=== PATIENT | female | born 1945 | race Caucasian/White ===

== ENCOUNTER 2018-12-07 17:58 | Inpatient (IN) | payer MEDICARE ==
[~2018-12-07] VITALS: Ht 170.2 cm; Wt 66.5 kg
[2018-12-07] VITALS (12 sets, daily range): BP systolic 126–144; BP diastolic 68–94; BMI 23.7
--- NOTE | ~2018-12-07 | HEMODYNAMI ---
PATIENT:MARLEE VOSS MEDICAL RECORD: [id number] : 49 LOCATION:[facility] ADMISSION DATE: 12/07/18 Generatedon:12/07/201818:59 Patient name: MARLEE VOSS Patient #: [id number] SSN: : Date of study: 12/07/2018 Page: Of Hemodynamic Procedure Report Patient Data Patient Demographics Procedure consent was obtained First Name: MARLEE Gender: Female Last Name: SHANIKA : 1945 [facility] Initial: J Age: 73 year(s) Patient #: [id number] Race: Unknown Additional ID: [id number] Contact details [address]: [address] [place] [address] State: [place] City: [place] Zip code: [address] Past Medical History Allergies Allergen Reaction Date Comments Reported Other allergy 12/07/2018 CINDAMYCIN, LISINOPRIL, BACTRIM Admission Admission Data Admission Date: 12/07/2018 Admission Time: 17:58 Arrival Date: 12/07/2018 Arrival Time: 0:00 Admit Source: Emergency department Height (in.): 67 BSA: 1.74 (m2) Height (cm.): 170.18 BMI: 22.1 (kg/m2) Weight (lbs.): 141.1 Weight (kg.): 64 Procedure Procedure Types Cath Procedure Diagnostic Procedure [facility] w/Coronaries Sedation Charges Moderate Sedation up to 30 minutes PCI Procedure AMI/SVG/ELECTROTYPER HELPER PTCA or Stent AMI-BMS/CHATO Initial Procedure Description Procedure Date Procedure Date: 12/07/2018 Procedure Start Time: 18:26 Procedure End Time: 18:54 Procedure Staff Name Function Westley Morillo MD Performing Physician Hortencia Francis RT Monitor Rayne Encarnacion RT Scrub Stephanie Ramos RN Nurse Procedure Data Cath Procedure Fluoroscopy Diagnostic fluoroscopy Total fluoroscopy Time: 7.9 time: 7.9 min min Diagnostic fluoroscopy Total fluoroscopy dose: 690 dose: 690 mGy mGy Contrast Material Contrast Material Type Amount (ml) Isovue 300 92 Entry Location Entry Primary Successful Side Size Upsize Upsize Entry Closure Succes sful Closure Location (Fr) 1 (Fr) 2 (Fr) Remarks Device Remarks Femoral Right 6 Fr Exoseal artery Short Estimated blood loss: 5 ml Diagnostic catheters Device Type Used For End Catheter Placement MULTIPACK JL 4.0 5Fr Left Coronary catheter Angiography MULTIPACK 3DRC 5Fr Right Coronary catheter Angiography MULTIPACK Pigtail 5 Fr LV Angiography catheter Procedure Complications No complications Procedure Medications Medication Administration Route Dosage 0.9% NaCl I.V. 100 ml/hr Oxygen etCO2 Nasal cannula 2 l/min Lidocaine 2% added to field 20 Heparin Flush Bag added to field 2 bags (1000units/500ml NS) Versed I.V. 2 mg Fentanyl I.V. 50 mcg Benadryl I.V. 50 mg Fentanyl I.V. 50 mcg Versed I.V. 2 mg Heparin Bolus I.V. 4000 units Plavix P.O. 300 mg Hemodynamics Rest BSA: 1.74 (m2) O2 Consumption: Estimated: 160.23 (ml/min) O2 Consumption indexed : Estimated:92.09 (ml/min/m) Heart Rate: 70 (bpm) Pressure Samples Time Site Value (mmHg) Purpose Heart Use Rate(bpm) 18:36 LV 189/74,33 Snapshot 82 Gradients Valve Time Site Site Mean SEP/DFP Peak To Heart Use 1 2 (mmHg) (sec/min) Peak Rate (mmHg) (bpm) Aortic 18:36 LV AO 83 Snapshots Pre Cath Intra NCS Post Cath Vital Signs Time Heart Resp SPO2 etCO2 NIBP (mmHg) Rhythm Pain Status Sedation Rate (ipm) (%) (mmHg) Level (bpm) 18:22:59 72 14 100 16 135/72(111) NSR 4 (11) , 10(A) Distressing 18:27:11 77 16 98 13 139/82(116) NSR 4 (11) , 10(A) Distressing 18:31:23 78 16 98 16.4 132/76(113) NSR 4 (11) , 10(A) Distressing 18:35:36 82 14 98 14.9 131/71(103) NSR 1 (11) , 10(A) Very mild 18:39:44 87 16 97 17.9 123/81(106) NSR 1 (11) , 10(A) Very mild 18:44:43 99 10 97 22.4 Measuring NSR 0 (11) , No 10(A) pain 18:47:27 104 11 98 38.8 165/93(130) NSR 0 (11) , No 10(A) pain 18:51:41 105 18 93 17.9 150/94(119) NSR 0 (11) , No 10(A) pain Medications Time Medication Route Dose Verified Delivered Reason Notes Effectiveness by by 18:23:04 Benadryl I.V. 50 mg Westley Stephanie Per physician St Jose Ramos MD, RN 18:28:37 0.9% NaCl I.V. 100 Westley Stephanie used for ml/hr IliaJose Ramos procedure MD MONTALVO 18:28:44 Oxygen etCO2 2 Westley Stephanie used for Nasal l/min IliaJose Ramos procedure cannula MD MONTALVO 18:28:49 Lidocaine 2% added 20ml Westley Nelsonory for local to vial [facility] anesthetic field MD BUSCH 18:28:53 Heparin Flush added 2 Westley Westley used for Bag to bags [facility] procedure (1000units/500ml field MD BUSCH NS) 18:28:58 Versed I.V. 2 mg Westley Stephanie for sedation St Jose Ramos MD, RN 18:29:04 Fentanyl I.V. 50 Westley Stephanie for sedation mcg St Jose Ramos MD, RN 18:33:07 Fentanyl I.V. 50 Westley Stephanie for sedation mcg St Jose Ramos MD, RN 18:37:34 Heparin Bolus I.V. 4000 Westley Stephanie for verif ied units [facility] anticoagulation with Dr. MD MONTALVO [place] 18:39:29 Versed I.V. 2 mg Westley Stephanie for sedation St Jose Ramos MD, RN 18:55:33 Plavix P.O. 300 Westley Palmeryla for mg St Jose Ramos antiplatelet MD MONTALVO therapy Procedure Log Time Note 18:00:03 Stephanie Ramos RN sent for patient. Start room use. 18:08:11 Procedure Status Emergent Heart Cath (AMI). 18:08:12 Time tracking: Call back (After hours or weekends) 18:08:20 Plan of Care:Hemodynamics will remain stable., Cardiac rhythm will remain stable., Comfort level will be maintained., Respiratory function will remain adequate., Patient/ family verbilizes understanding of procedure., Procedure tolerated without complication., Recovers from procedure without complications.. 18:08:21 Signed procedure consent form obtained from patient. 18:09:22 Patient allergic to Other allergyCINDAMYCIN, LISINOPRIL, BACTRIM 18:10:44 Use device set CATH PACK 18:10:45 ACIST Syringe (93078) opened to sterile field. 18:10:45 ACIST Hand Control (07117) opened to sterile field. 18:10:46 ACIST Manifold (93930) opened to sterile field. 18:10:46 Medline Cath Pack ([id number]) opened to sterile field. 18:10:46 Bag Decanter (2002S) opened to sterile field. 18:10:47 EMERALD Guide Wire (502-606) opened to sterile field. 18:11:15 SHEATH 6FR Pimento (UZS672) opened to sterile field. 18:11:15 INFLATOR Merit BasixCompak (BE3556) opened to sterile field. 18:11:16 WHISPER 300cm guide wire ([id number]) opened to sterile field. 18:12:59 Patient Weight : 141.1 lbs 18:13:07 Patient Height : 67 inches 18:13:12 Admit Source: Emergency department 18:13:16 Arrival Date: 12/07/2018 12:00:00 AM 18:13:25 H&P Date Dictated: 12/07/2018 ER History on chart.. 18:16:20 Patient received from ED to CCL 1 Alert and oriented. Tansferred to table in Supine position. 18:16:21 Warm blankets applied, and marco hugger turned on for patient comfort. 18:16:22 Correct patient and procedure confirmed by team. 18:16:22 ECG and BP/O2 sat monitors applied to patient. 18:21:56 Vital chart was started 18:21:57 Baseline sample Acquired. 18:22:00 Rhythm: sinus rhythm 18:22:02 Full Disclosure recording started 18:22:03 Pre-procedure instructions explained to patient. 18:22:05 Family unavailable. 18:22:08 Patient NPO since Midnight. 18:22:10 Is the patient allergic to Iodine/contrast media? No. 18:22:12 Was the patient premedicated? No 18:22:19 Is patient on blood thinner?Yes 18:22:23 ACC The patient was administered the following blood thiners within the last 24 hours: ACCHeparin 18:22:36 Patient diabetic? Yes. 18:22:37 If diabetic: On Metformin? Yes 18:22:40 If on Metformin: Last Dose? 12/07/2018 18:22:47 Previous problem with sedation/anesthesia? No ? 18:22:49 Snore? Yes 18:22:51 Sleep apnea? No 18:22:52 Deviated septum? No 18:22:53 Opens mouth fully? Yes 18:22:54 Sticks out tongue? Yes 18:22:57 Airway obstruction? No ? 18:23:04 Benadryl 50 mg I.V. was administered by Stephanie Ramos RN; Per physician; Verbal order read back and verified. 18:23:04 Dentures? Yes PARTIALS IN TIGHT 18:23:09 Pre procedure: right dorsailis pedis pulse 1+ Palpable, but thready & weak; easily obliterated 18:23:12 Pre procedure: left dorsailis pedis pulse 1+ Palpable, but thready & weak; easily obliterated 18:23:14 Patient pain scale 3/10 ?. 18:23:27 IV patent on arrival in left forearm with 0.9% NaCl at [facility]. 18:23:30 Lab results completed and on chart. 18:23:33 Right groin area was prepped with chlora-prep and draped in sterile fashion 18:23:34 Alarms reviewed by R. N. 18:23:34 Sharps counted by scrub and verified by R.N. 18:23:35 Physician arrived 18:23:36 --------ALL STOP TIME OUT------ 18:23:36 Final Timeout: patient, procedure, and site verified with staff and physician. All members of the team are in agreement. 18:23:39 Right groin site verified by team. 18:23:42 Fire Safety Assessment: A--An alcohol-based skin anteseptic being used preoperatively., C--Open oxygen or nitrous oxide is being used., D--An ESU, laser, or fiber-optic light is being used. 18:23:46 Physical assessment completed. ASA score P 2 - A patient with mild systemic disease as per Westley Morillo MD. 18:23:56 Sedation plan: IV Moderate Sedation Medication:Versed, Fentanyl 18:23:59 Use device set Femoral Dx 18:24:00 ACIST Syringe (61945) opened to sterile field. 18:24:01 Bag Decanter (2001S) opened to sterile field. 18:24:01 Medline Cath Pack ([id number]) opened to sterile field. 18:24:02 ACIST Hand Control (69648) opened to sterile field. 18:24:03 ACIST Manifold (88251) opened to sterile field. 18:24:03 DIAGNOSTIC Multipack 5Fr catheter set (ZW3261) opened to sterile field. 18:24:04 Tegaderm 4 x 4 (1626W) opened to sterile field. 18:24:05 SHEATH 5FR Pimento (AQN737) opened to sterile field. 18:24:05 EMERALD Guide Wire (622-262) opened to sterile field. 18:26:47 Procedure started. 18:26:50 Local anesthetic to right femoral artery with Lidocaine 2% by Westley Morillo MD.INITIAL ACCESS ONLY 18:27:10 A 6 Fr Short sheath was inserted into the Right Femoral artery 18:28:16 A MULTIPACK JL 4.0 5Fr catheter was advanced over the wire and used for Left Coronary Angiography. 18:28:37 0.9% NaCl 100 ml/hr I.V. was administered by Stephanie Ramos RN; used for procedure; Verbal order read back and verified. 18:28:44 Oxygen 2 l/min etCO2 Nasal cannula was administered by Stephanie Ramos RN; used for procedure; Verbal order read back and verified. 18:28:49 Lidocaine 2% 20ml vial added to field was administered by Westley Morillo MD; for local anesthetic; Verbal order read back and verified. 18:28:53 Heparin Flush Bag (1000units/500ml NS) 2 bags added to field was administered by Westley Morillo MD; used for procedure; Verbal order read back and verified. 18:28:58 Versed 2 mg I.V. was administered by Stephanie Ramos RN; for sedation; Verbal order read back and verified. 18:29:04 Fentanyl 50 mcg I.V. was administered by Stephanie Ramos RN; for sedation; Verbal order read back and verified. 18:30:13 LCA angiography performed. 18:30:15 Injector settings: Ml/sec: 3, Volume: 6, 18:30:46 Catheter removed. 18:31:02 A MULTIPACK 3DRC 5Fr catheter was advanced over the wire and used for Right Coronary Angiography. 18:32:02 GLIDE WIRE ANGLE 260cm (TL2179) opened to sterile field. 18:33:07 Fentanyl 50 mcg I.V. was administered by Stephanie Ramos RN; for sedation; Verbal order read back and verified. 18:33:40 RCA angiography performed. 18:33:44 Injector settings: Ml/sec: 3, Volume: 6, 18:33:53 Catheter removed. 18:33:59 A MULTIPACK Pigtail 5 Fr catheter was advanced over the wire and used for LV Angiography. 18:34:29 INFLATOR Merit BasixCompak (AF0918) opened to sterile field. 18:34:35 WHISPER 300cm guide wire ([id number]) opened to sterile field. 18:35:11 GUIDE 6FR EBU 3.5 catheter (SA3PMB37) opened to sterile field. 18:36:26 LV hemodynamics recorded. 18:36:28 LV gram done using WHITAKER 18:36:30 Injector settings: Ml/sec: 5, Volume: 15, 18:36:43 EF : 40 % 18:36:45 Catheter removed. 18:36:52 Proceeding to intervention. 18:36:55 ACCDominant side:Right 18:37:17 Pre PCI Site: Hoh mCirc has 98% stenosis. 18:37:20 ACC Pre-intervention YOSELYN Flow is 3. 18:37:26 6 Fr EBU 3.5 guide catheter was inserted over the wire 18:37:31 WHISPER wire advanced. 18:37:34 Heparin Bolus 4000 units I.V. was administered by Stephanie Ramos RN; for anticoagulation; verified with Dr. Dupree Verbal order read back and verified. 18:39:29 Versed 2 mg I.V. was administered by Stephanie Ramos RN; for sedation; Verbal order read back and verified. 18:40:25 Inflate balloon Inflation number: 1 A EMERGE OTW 3.0 x 15 balloon ([id number]) was prepped and advanced across the Mid CX 98, then inflated to 10 CLAUDIA for 0:30 (min:sec) 0. 18:41:02 Inflation number: 2 The EMERGE OTW 3.0 x 15 balloon ([id number]) was reinflated across the Mid CX 0, to 14 CLAUDIA for 0:30 (min:sec) . 18:41:35 Balloon removed over the wire. 18:46:51 Place stent Inflation Number: 3 A MARIANO OTW 3.5 x 18 stent ([id number]) was prepped and advanced across the Mid CX 98. The stent was deployed at 14 CLAUDIA for 0:30 (min:sec) 0. 18:47:28 Stent catheter was removed intact over wire. 18:47:29 Wire removed. 18:47:29 Guide catheter removed. 18:47:38 EXOSEAL 6Fr (EX600) opened to sterile field. 18:47:52 Sheath removed intact; hemostasis achieved with Exoseal to the Right Femoral artery. 18:47:55 Procedure ended.(Physican Out) 18:48:06 Fluoroscopy time 07.90 minutes. 18:48:11 Fluoroscopy dose: 690 mGy 18:48:11 Flurop Dose total: 690 18:48:17 Dose Area Product 00013 mGy/cm. 18:48:23 Contrast amount:Isovue 300 92ml. 18:48:25 Sharps counted by scrub and verified by R.N. 18:51:38 Femstop placed over the right femoral artery at 145 mmHg. Hemostasis achieved. 18:51:40 Post Procedure Pulses reassessed and unchanged 18:51:48 Post procedure rhythm: unchanged. 18:54:08 Estimated blood loss: 5 ml 18:54:09 Post procedure instruction explained to patient.Patient verbalizes understanding. 18:54:10 Patient needs reinforcement of post procedure teaching. 18:54:32 Procedure type changed to Cath procedure, Diagnostic procedure, LHC, LHC w/Coronaries, Sedation Charges, Moderate Sedation up to 30 minutes, PCI procedure, AMI/SVG/ELECTROTYPER HELPER PTCA or Stent, AMI-BMS/CHATO Initial 18:54:33 Procedure and supply charges have been captured, reviewed, submitted and are correct. 18:54:37 Procedure Complication : No complications 18:54:40 Vital chart was stopped 18:54:41 See physician's report for complete and final results. 18:54:51 Report given to ICU. 18:54:53 Patient transfered to ICU with Stretcher. 18:54:56 Procedure ended. 18:54:56 Full Disclosure recording stopped 18:55:05 ACC-PCI Only Patient was given prescriptions, or instructed by Westley Morillo MD to start/continue the following medications upon discharge: Plavix 18:55:06 End room use (Document Last) 18:55:33 Plavix 300 mg P.O. was administered by Stephanie Ramos RN; for antiplatelet therapy; Verbal order read back and verified. Intervention Summary Intervention Notes Time ActionType Lesion and Equipment Action# Pressure Duration Attributes Used 18:40:25 Inflate Mid CX EMERGE OTW 1 10 00:30 balloon 3.0 x 15 balloon ([id number]) 18:41:02 Reinflate Mid CX EMERGE OTW 2 14 00:30 balloon 3.0 x 15 balloon ([id number]) 18:46:51 Place stent Mid CX MARIANO OTW 3.5 3 14 00:30 x 18 stent ([id number]) Device Usage Item Name Manufacture Quantity Catalog Number Hospital Part Current M inimal Lot# / Charge Number Stock Stock Serial# Code ACIST Syringe Acist 2 33876 203372 851517 587237 2 0 (53542) Medical Systems Inc ACIST Hand Acist 2 74844 472456 511073 235888 5 Control Medical (59295) Systems Inc ACIST Acist 2 61035 791078 134900 472208 5 Manifold Medical (89436) Systems Inc Medline Cath Medline 2 [id number] 451965 15114 433665 5 Pack ([id number]) Bag Decanter Microtek 2 2001S 306031 03511 677536 5 (2001S) Medical Inc. EMERALD Guide Cardinal 2 502-455 006794 386802 660543 5 Wire Health (502455) SHEATH 6FR Terumo 1 OPW198 841965 248201 491139 4 0 Pimento (MCQ143) INFLATOR Merit 2 BS4775 316240 335946 035284 1 5 Merit Medical BasixCompak (MZ4174) WHISPER 300cm Delgadillo 2 [id number] 852087 285070 482979 5 guide wire Vascular ([id number]) DIAGNOSTIC Cardinal 1 DQ1490 724442 07685 541205 3 0 Multipack 5Fr Health catheter set (AJ7532) Tegaderm 4 x 3M 1 1626W 960292 571058 562233 5 4 (1626W) SHEATH 5FR Terumo 1 VQG229 584408 240572 755629 5 Pimento (EPH772) MULTIPACK JL Cardinal 1 042720 5 4.0 5Fr Health catheter MULTIPACK Cardinal 1 800322 5 3DRC 5Fr Health catheter GLIDE WIRE Terumo 1 UR4780 364580 573676 968466 5 ANGLE 260cm (WH3286) MULTIPACK Cardinal 1 476280 5 Pigtail 5 Fr Health catheter GUIDE 6FR EBU Medtronic 1 [id number] 414791 30661 816395 3 3.5 catheter (KT7MCU51) EMERGE OTW Kulm 1 [id number] 798759 227974 920403 5 [id number] 3.0 x 15 Scientific balloon ([id number]) MARIANO OTW 3.5 Medtronic 1 [id number] 605650 4537708 716450 5 [id number] x 18 stent ([id number]) EXOSEAL 6Fr Cardinal 1 EX600 585922 921111 840550 1 0 (EX600) Health Signature Audit [place] Stage Time Signature Unsigned Intra-Procedure 12/07/2018 Hortencia Francis 6:58:34 PM RT(R) Intra-Procedure 12/07/2018 Stephanie Ramos 6:58:59 PM RN Intra-Procedure 12/07/2018 Westley Restrepo 6:59:25 PM [place] [address] [place] [address]
[2018-12-07] MEDS ORDERED: AMLODIPINE (18:05)
[2018-12-07] MEDS ORDERED: METFORMIN (18:05)
[2018-12-07] MEDS ORDERED: GABAPENTIN (18:05)
[2018-12-07] MEDS ORDERED: VITAMINS (18:05)
[2018-12-07] MEDS ORDERED: [UNRECOGNIZED DRUG - OTHER] (18:05)
[2018-12-07] MEDS ORDERED: [UNRECOGNIZED DRUG - REMARK] (18:06)
[2018-12-07] MEDS ORDERED: MUSCLE RELAXER (18:06)
[2018-12-07] MEDS ORDERED: ACID REFLUX PILL (18:06)
[2018-12-07] MEDS ORDERED: ALLERGY PILL (18:06)
[2018-12-07] MEDS ORDERED: ANXIETY/DEPRESSION (18:06)
[2018-12-07] MEDS ORDERED: ANTIBIOTIC (18:06)
[2018-12-07] MEDS ORDERED: [UNRECOGNIZED DRUG - REMARK] (18:07)
--- NOTE | 2018-12-07 18:14 | NUR ---
PT LEFT ED AT THIS TIME WITH STAFF VETERINARIAN TEAM
--- NOTE | 2018-12-07 18:20 | NUR ---
DEPART TO TRACK SERVICE WORKER AT 1820
--- NOTE | 2018-12-07 19:15 | NUR ---
PT RECIEVED FROM CAP CUTTER, PT AWAKES BUT DROWSY, RESP EVEN NON LABORED, NO DISTRES NOTED AT THIS TIME, VSS
[2018-12-07 19:47] LABS: BASOPHILS 0.2 % (0-2); EOSINOPHILS 0.7 % (0-7); HEMATOCRIT 35.9 % (36.0-48.0); HEMOGLOBIN 12.4 g/dL (12-16); IMMATURE GRANULOCYTES 0.2 % (0-5); LYMPHOCYTES 21.6 % (15-50); MCH 30.5 pg (26.0-34.0); MCHC 34.5 g/dL (31.0-37.0); MCV 88.2 fL (80.0-100.0); MEAN PLATELET VOLUME 9.3 fL (7.4-10.4); MONOCYTES 4.6 % (2-11); NEUTROPHILS 72.7 % (40-80); PLATELET COUNT 196 10x3/uL (130-400); RBC 4.07 10x6/uL (4.00-5.40); RDW 13.3 % (11.5-14.5); WBC 15.3 10x3/uL (4.8-10.8)
[2018-12-07 20:03] LABS: CALC OSMOLALITY 270 mosm/kg (275-300); CALCIUM 8.3 mg/dL (8.5-10.1); CHLORIDE - SERUM 98 mmol/L (98-107); CREATININE - SERUM 0.6 mg/dL (0.6-1.3); GLUCOSE 150 mg/dL (74-106); POTASSIUM - SERUM 4.1 mmol/L (3.5-5.1); SODIUM 134 mmol/L (136-145); UREA NITROGEN 13 mg/dL (7-18); eGFR NON AFRICAN AMERICAN > 90 mL/min (90-120)
[2018-12-07] MEDS ORDERED: PROTONIX40 MG PO (20:04)
[2018-12-07] MEDS ORDERED: GLUCOPHAGE500 MG PO (20:05)
[2018-12-07] MEDS ORDERED: ZOLOFT25 MG PO (20:08)
[2018-12-07] MEDS ORDERED: NORVASC5 MG PO (20:08)
[2018-12-07] MEDS ORDERED: ROPINIROLE HCL0.5 MG PO (20:09)
[2018-12-07] MEDS ORDERED: NEURONTIN600 MG PO ×3 (20:11→20:12)
[2018-12-07] MEDS ORDERED: LIPITOR10 MG PO (20:13)
[2018-12-07] MEDS ORDERED: MAGNESIUM OXID250 MG PO (20:13)
[2018-12-07] MEDS ORDERED: POTASSIUM99 M1 PO (20:16)
[2018-12-07] MEDS ORDERED: BUTALB-APAP-CA1 EACH PO (20:18)
[2018-12-07] MEDS ORDERED: CEREFOLIN TAB1 TAB PO (20:19)
[2018-12-07] MEDS ORDERED: CYCLOBENZAPRINE10 MG PO (20:28)
[2018-12-07] MEDS ORDERED: KEFLEX500 MG PO (20:29)
--- NOTE | 2018-12-07 20:30 | NUR ---
PT C/O RICHARDS, NEW ORDERS FROM DR. NANCE, PT GIVEN PAIN MED
--- NOTE | 2018-12-07 21:00 | NUR ---
PT ADVISED THAT PAIN WAS ONLY A LITTLE BETTER AT THIS TIME. VSS NO CHANGES IN COND. NOTED
--- NOTE | 2018-12-07 22:30 | NUR ---
FEMSTOP REMOVED AT THIS TIME, SITE CLEANED, AND TEGRADERM APPLIED, NO BLEEDING NOTED FROM SITE. PT MAHI WELL. SMALL AREA OF SWELLING NOTED TO RIGHT ANTERIOR THIGH, NO PULSATION NOTED, NO PAIN ON PALPATION
--- NOTE | 2018-12-07 23:00 | NUR ---
PT REASSESSMENT COMPLETED AT THIS TIME, NO CHANGES NOTED
[2018-12-08] VITALS (25 sets, daily range): BP systolic 97–143; BP diastolic 52–95
--- NOTE | 2018-12-08 01:00 | NUR ---
PT RESTING WITH EYES CLOSED, RESP EVEN NON LABORED, NO DISTRESS NOTED. VSS
--- NOTE | 2018-12-08 03:00 | NUR ---
PT REASSESSMENT COMPLETED AT THIS TIME, NO CHANGES NOTED
--- NOTE | 2018-12-08 05:00 | NUR ---
PT RESTING WITH EYES, NO CHANGES NOTED, VSS
--- NOTE | 2018-12-08 07:51 | NUR ---
CHG BATH PROVIDED AT THIS TIME. PT PERFORMED INDEPENDENTLY. TOTAL LINEN CHANGE ALSO PROVIDED. VSS. WILL CONTINUE PLAN OF CARE.
--- NOTE | 2018-12-08 08:20 | NUR ---
DR MESSER HERE TO SEE PT. NO NEW ORDERS RECEIVED. NOTIFIED OF RT GROIN TENDERNESS, STATED THAT WILL TAKE TIME. NO ACUTE DISTRESS NOTED. WILL CONTINUE PLAN OF CARE.
--- NOTE | 2018-12-08 09:51 | NUR ---
PER DR MESSER, OKAY TO RESTART PTS HOME METFORMIN, FLEXERIL, AND ROPINIROLE. PT ALSO ASKED ABOUT NEURONTIN STATING SHE HAS QHS AND PRN DOSES SHE TAKES AT HOME, DR MESSER STATED TO RESTART ONLY THE QHS DOSE. WILL PLACE ORDRES. WILL CONTINUE PLAN OF CARE.
--- NOTE | 2018-12-08 10:25 | NUR ---
PT COMPLAINT OF CHEST PAIN AT THIS TIME STATING IT MORE TO THE LEFT SIDE AND IS SLIGHT. DR MESSER NOTIFIED OF THIS AND EKG WAS ORDERED. ALSO GAVE ORDERS FOR MORPHINE 2-5 MG IV Q4H PRN PAIN. ONE TIME DOSE OF TORADOL 30MG IV. ALSO RECIEVED ORDERS FOR CBC, CMP, 1GRAM ROCEPHIN IV. VSS. WILL CONTINUE PLAN OF CARE.
[2018-12-08 10:33] LABS: BASOPHILS 0.1 % (0-2); EOSINOPHILS 1.2 % (0-7); HEMATOCRIT 36.2 % (36.0-48.0); IMMATURE GRANULOCYTES 0.3 % (0-5); LYMPHOCYTES 18.9 % (15-50); MCH 30.2 pg (26.0-34.0); MCHC 33.1 g/dL (31.0-37.0); MEAN PLATELET VOLUME 9.5 fL (7.4-10.4); MONOCYTES 6.3 % (2-11); NEUTROPHILS 73.2 % (40-80); PLATELET COUNT 190 10x3/uL (130-400); RBC 3.97 10x6/uL (4.00-5.40); RDW 13.6 % (11.5-14.5); WBC 15.1 10x3/uL (4.8-10.8)
[2018-12-08 10:34] LABS: MCV 91.2 fL (80.0-100.0)
[2018-12-08 10:49] LABS: ALBUMIN 3.3 g/dL (3.4-5.0); ALKALINE PHOSPHATASE 106 U/L (46-116); ALT (SGPT) 64 U/L (10-68); BILIRUBIN - TOTAL 0.41 mg/dL (0.2-1.3); CALC OSMOLALITY 275 mosm/kg (275-300); CALCIUM 8.3 mg/dL (8.5-10.1); CARBON DIOXIDE 28.7 mmol/L (21.0-32.0); CHLORIDE - SERUM 100 mmol/L (98-107); GLUCOSE 194 mg/dL (74-106); POTASSIUM - SERUM 4.2 mmol/L (3.5-5.1); PROTEIN - SERUM 7.2 g/dL (6.4-8.2); SODIUM 135 mmol/L (136-145); UREA NITROGEN 16 mg/dL (7-18); eGFR NON AFRICAN AMERICAN 75 mL/min (90-120)
[2018-12-08 10:51] LABS: CREATININE - SERUM 0.8 mg/dL (0.6-1.3)
--- NOTE | 2018-12-08 11:18 | NUR ---
PT STATES CHEST PAIN IS AT A 0 NOW. UP IN BED WATCHING TV. DENIES ANY NEEDS. VSS. WILL CONTINUE PLAN OF CARE.
--- NOTE | 2018-12-08 12:13 | HP ---
PATIENT: MARLEE VOSS MEDICAL RECORD: [id number] ACCOUNT: [id number] LOCATION:[facility] D.2304 : [birth year] ADMISSION DATE: 12/07/18 PCP: RAFI VIVEROS HISTORY AND PHYSICAL EXAMINATION HISTORY OF PRESENT ILLNESS: A 73-year-old female transferred from [place] via helicopter on urgent basis with acute inferior myocardial infarction, pain has been stuttering since approximately last 24 hours. Being brought to laborer construction or leak gang on an urgent basis. Still in continued pain, ST segment elevation. PAST MEDICAL HISTORY: 1. Hypertension. 2. Hyperlipidemia. 3. Diabetes mellitus. 4. Tobacco use. 5. Probable obstructive coronary artery disease. PHYSICAL EXAMINATION: GENERAL: Clinically, older female, in mild distress. HEENT: Normocephalic, atraumatic. NECK: No bruits noted. HEART: Regular, S4 gallop. LUNGS: Slight prolonged phase with expiratory wheezes. ABDOMEN: Soft, nontender. EXTREMITIES: Pulse 2+. No edema. IMPRESSION: Acute inferior myocardial infarction, angiography, intervention based on above. TRANSINT:[id number] Voice Confirmation ID: [id number] DOCUMENT ID: [id number] UMANG MESSER MD at 1213 CC: [id number] DICTATION DATE: 12/07/181899 RECEIVING CLERK: 12/07/182020 ADM IN [place] [id number] [place] [id number]
--- NOTE | 2018-12-08 13:21 | NUR ---
UP IN BED VISITING WITH FAMILY. NO ACUTE DISTRESS NOTED. VSS. WILL CONTINUE PLAN OF CARE.
--- NOTE | 2018-12-08 15:07 | NUR ---
UP IN BED WATCHING TV. DENIES ANY NEEDS. NO ACUTE DISTRESS NOTED. VSS. WILL CONTINUE PLAN OF CARE.
--- NOTE | 2018-12-08 17:44 | NUR ---
UP IN BED AWAKE AT THIS TIME. NO ACUTE DISTRESS NOTED. VSS. WILL CONTINUE PLAN OF CARE.
--- NOTE | 2018-12-08 19:00 | NUR ---
PT REPORT RECEIVED FROM DAY SHIFT NURSE. VSS. NO SIGNS OF DISTRESS NOTED. SHIFT ASSESSMENT COMPLETED. WILL CONTINUE TO MONITOR
--- NOTE | 2018-12-08 21:00 | NUR ---
PT RESTING IN BED. FAMILY AT BEDSIDE. NIGHTLY MEDS GIVEN. BLOOD SUGAR CHECKED. VSS. WILL CONTINUE TO MONITOR
--- NOTE | 2018-12-08 23:00 | NUR ---
PT RESTING IN BED. REASSESSMENT COMPLETED. PT COMPLAINING OF PAIN RATED 8 OF 10. HEADACHE. HOWEVER PT WAS ASLEEP WHEN I ENTERED THE ROOM. WILL CONTINUE TO MONITOR. OTHERWISE STABLE VS.
[2018-12-09] VITALS (11 sets, daily range): BP systolic 108–158; BP diastolic 55–84; Ht 170.2 cm; Wt 66.5 kg
--- NOTE | 2018-12-09 00:41 | NUR ---
PT COMPLAINED OF HEADACHE. GIVEN NORCO 10. PT RATED PAIN 10/10. WILL CONTINUE TO MONITOR
--- NOTE | 2018-12-09 01:15 | NUR ---
PT PAIN REASSESSED. RATED PAIN AT A 7/10. VITAL SIGNS ARE STABLE. NO OTHER SIGNS OF DISCOMFORT NOTED. WILL CONTINUE TO MONITOR
--- NOTE | 2018-12-09 03:05 | NUR ---
PT RESTING IN BED. NO COMPLAINTS NOTED AT THIS TIME. VSS. WILL CONTINUE TO MONITOR
--- NOTE | 2018-12-09 05:00 | NUR ---
PT RESTING IN BED. NO SIGNS OF DISTRESS NOTED. NO COMPLAINTS NOTED AT THIS TIME. VSS. WILL CONTINUE TO MONITOR
--- NOTE | 2018-12-09 07:17 | NUR ---
REPORT RECIEVED FROM RN. PATIENT IS ALERT AND ORIENTED. STATED SHE COULDNT SLEEP LAST NIGHT. DIM LIGHTS PROVIDED. STATED SHE WAS READY FOR DISCHARGE. RECIEVED REPORT THAT DR MESSER STATED SHE WOULD BE ABLE TO GO HOME TODAY. WILL CONTINUE TO MONITOR.
[2018-12-09] MEDS ORDERED: TOPROL XL25 MG PO (10:09)
[2018-12-09] MEDS ORDERED: LIPITOR40 MG PO (10:09)
[2018-12-09] MEDS ORDERED: PLAVIX75 MG PO (10:10)
--- NOTE | 2018-12-09 15:14 | MORECARE ---
CASE MANAGEMENT DISCHARGE SUMMARY PATIENT: MARLEE VOSS UNIT: [id number] ADM DATE: 12/07/18 AGE: 73 : [birth year] SEX: F ROOM/BED: D.2304 AUTHOR: ANGELICA NAZARIO PHYSICIAN: REFERRING PHYSICIAN: UMANG MESSER MD DATE OF SERVICE: 12/09/18 Discharge Plan Patient Name: [facility]LE[facility]OSS [facility] [facility] 1945 Planned Disposition: Home Anticipated Discharge Date: Discharge Date: 12/09/2018 Expected LOS: Initial Reviewer: [email or web address] Initial Review Date: 12/09/2018 Generated: 12/09/18 4:14 pm Patient Name: MARLEE VOSS Page [phone] at 1514 All edits/amendments must be made on the electronic document DICTATION DATE: 12/09/18 1514 FLAVOR EXTRACTOR: JOSE 12/09/18 1514 RPT#: [id number] DC DATE:12/09/18 STATUS: DIS IN [facility] [address] [place] [address] END OF REPORT
--- NOTE | 2018-12-09 15:24 | MORECARE ---
CASE MANAGEMENT DISCHARGE SUMMARY PATIENT: MARLEE VOSS UNIT: [id number] ADM DATE: 12/07/18 AGE: 73 : [birth year] SEX: F ROOM/BED: D.2304 AUTHOR: MANSIDOC PHYSICIAN: REFERRING PHYSICIAN: UMANG MESSER MD DATE OF SERVICE: 12/09/18 Discharge Plan Patient Name: MARLEE VOSS Facility: [facility]:[place] : 1945 Planned Disposition: Home Anticipated Discharge Date: Discharge Date: 12/09/2018 Expected LOS: Initial Reviewer: [email or web address] Initial Review Date: 12/09/2018 Generated: 12/09/18 4:24 pm Comments DCP- Discharge Planning Updated by [email or web address]: Liane Lay on 12/09/18 2:[address] Patient Name: MARLEE VOSS Admission Status: ER Accout number: [id number] Admission Date: 12-07-2018 : 1945 Admission Diagnosis: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 CM educated patient on the CM role and verbal consent given by patient to complete assessment. Patient lives at home with her where she is independent with her care. At discharge patient plans to return home and feels this is a safe discharge. CM discussed availability of home health, rehab services, and medical equipment. Her daughter will be her driver/guide home. Patient denied known discharge needs at this time. CM will continue to follow and will assist as needed with dc plans/needs. Terminal Superintendent: Liane Lay DCPIA - Discharge Planning Initial Assessment Updated by [email or web address]: Liane Lay on 12/09/18 3:14 pm * Is the patient Alert and Oriented? Yes * How many steps to enter\exit or inside your home? * PCP BRIAN RIVERA APRN * Pharmacy [facility] * Preadmission Environment Home with Family * ADLs Independent * Equipment None * List name and contact numbers for known caregivers / representatives who currently or will assist patient after discharge: ANGEL BOWEN - DAUGHTER - [phone] * Verbal permission to speak to the caregivers and representatives has been obtained from the patient. No * Community resources currently utilized None * Additional services required to return to the preadmission environment? No * Can the patient safely return to the preadmission environment? Yes * Has this patient been hospitalized within the prior 30 days at any hospital? No Last DP export: 12/09/18 2:14 p Patient Name: MARLEE VOSS Page [id number] at 1524 All edits/amendments must be made on the electronic document DICTATION DATE: 12/09/181523 SLUDGE FILTRATION OPERATOR: JOSE 12/09/18 1524 RPT#: [id number] DC DATE:12/09/18 STATUS: DIS IN [facility] [address] [place] [address] END OF REPORT
--- NOTE | 2018-12-11 11:07 | OP ---
PATIENT NAME: MARLEE VOSS MEDICAL RECORD: [id number] :[birth year] LOCATION[facility] D.2304 ADMISSION DATE:12/07/18 SURGEON: UMANG MESSER MD DATE OF OPERATION: 12/07/2018 PROCEDURE: Left heart catheterization, selective coronary angiography, right femoral artery approach. CATHETERS: A 5-Uzbek sheath, 5/4 left and right Burak, 5/4 pig. The procedure was well tolerated. The patient returned to the rehman, sheath removed. ExoSeal device and FemoStop were placed. FINDINGS: Left ventriculography in 30-degree WHITAKER view shows mild inferior and inferior apical hypokinesis. Overall, LV function appears preserved at 50%. CORONARY ANATOMY: LEFT MAIN: Left main is free of disease. LAD: Has a diffuse 50% stenosis in mid portion, does not appear flow restrictive. CIRCUMFLEX: Obviously infarct related artery with stenosis at 90% plus with YOSELYN flow 2 distally. RIGHT CORONARY ARTERY: Has severe proximal stenosis involving just 1/3 with the greatest at 80%. PLAN: Intervention to the circumflex momentarily. DESCRIPTION OF PROCEDURE: Using indwelling 6-Uzbek sheath, EBU 3.5 guiding catheter provided fair guide catheter support followed by a 300 cm Whisper wire was placed across the 90% plus stenosis of the circumflex down this portion of the vessel. Pre-deployment balloon used was a 3.0 x 15 mm Cavalier up to 10 atmospheres. Next, stent deployed was a 3.5 x 18 mm [place] drug-eluting stent to 14 atmospheres for 45 seconds. Final angiography showed excellent resolution with 90% percent stenosis, no significant residual. YOSELYN flow was 3 throughout the procedure. The patient previously was given 300 of Plavix in [place], this was repeated here. Heparin was re-bolused during the case as well. Usual postop AMI care. TRANSINT:[id number] Voice Confirmation ID: [id number] DOCUMENT ID: [id number] UMANG MESSER MD at 1107 CC: [id number] DICTATION DATE: 12/07/18 1858 YARD GOODS SALESPERSON: 12/08/18 0457 DIS IN 12/09/18 [place] [address]
--- NOTE | 2018-12-11 11:08 | DS ---
PATIENT:MARLEE VOSS :[birth year] MEDICAL RECORD: [id number] DISCHARGE SUMMARY ADMISSION DATE: 12/07/18 DISCHARGE DATE: 12/09/18 DATE OF ADMISSION: 12/07/2018. DATE OF DISCHARGE: 12/09/2018. PRIMARY DIAGNOSES: 1. Acute myocardial infarction. 2. Hypertension. 3. Hyperlipidemia. 4. Diabetes mellitus. BRIEF HISTORY AND HOSPITAL COURSE: Transferred from [place] with ST elevation myocardial infarction, brought in emergently to dental lab technician, underwent intervention to the circumflex, had residual disease. The right will be addressed at a later date. Started on Plavix, statin, beta blockade as well as aspirin. Followup is as described above. ACTIVITY: As tolerated. DIET: 1800 calorie ADA diet. TRANSINT:[id number] Voice Confirmation ID: [id number] DOCUMENT ID: [id number] UMANG MESSER MD at 1108 CC: [id number] DICTATION DATE: 12/09/18 0850 INSPECTOR MOTOR VEHICLES: 12/10/18 0210 DIS IN 12/09/18 [place] [id number] [place] [address]
== END 2018-12-09 10:36 | disposition home or self-care (01) | DRG 247 ==
LOC: D.ER 17:58 → D.CATH 17:58 → EDSTATUS 18:21 → D.ICU 19:15
PROVIDERS: ADMIT Internal Medicine Interventional Cardiology; ATTEND Internal Medicine Interventional Cardiology
PROC: B215YZZ Fluoroscopy of Left Heart using Other Contrast (ICD-10-PCS; 2018-12-07)
PROC: 027034Z Dilation of Coronary Artery, One Artery with Drug-eluting Intraluminal Device, Percutaneous Approach (ICD-10-PCS; principal; 2018-12-07 18:00)
PROC: 4A023N7 Measurement of Cardiac Sampling and Pressure, Left Heart, Percutaneous Approach (ICD-10-PCS; 2018-12-07 18:00)
DX: I21.19 ST elevation (STEMI) myocardial infarction involving other coronary artery of inferior wall (principal); I10 Essential (primary) hypertension; E78.5 Hyperlipidemia, unspecified; E11.9 Type 2 diabetes mellitus without complications

== ENCOUNTER 2018-12-10 17:21 | Inpatient (IN) | payer MEDICARE ==
[2018-12-10] VITALS (10 sets, daily range): BP systolic 80–103; BP diastolic 43–52; BMI 23.4
[~2018-12-10] VITALS: Ht 170.2 cm; Wt 66.8 kg
[~2018-12-10 17:21] MED LIST: ACID REFLUX PILL; ALLERGY PILL; AMLODIPINE; ANTIBIOTIC; ANXIETY/DEPRESSION; BUTALB-APAP-CA1 EACH PO; CEREFOLIN TAB1 TAB PO; CYCLOBENZAPRINE10 MG PO; GABAPENTIN; GLUCOPHAGE500 MG PO; KEFLEX500 MG PO; LIPITOR10 MG PO; LIPITOR40 MG PO; MAGNESIUM OXID250 MG PO; METFORMIN; MUSCLE RELAXER; NEURONTIN600 MG PO; NORVASC5 MG PO; PLAVIX75 MG PO; POTASSIUM99 M1 PO; PROTONIX40 MG PO; ROPINIROLE HCL0.5 MG PO; TOPROL XL25 MG PO; VITAMINS; ZOLOFT25 MG PO; [UNRECOGNIZED DRUG - OTHER]; [UNRECOGNIZED DRUG - REMARK]; [UNRECOGNIZED DRUG - REMARK]
[2018-12-10 18:01] LABS: HEMATOCRIT 27.6 % (36.0-48.0); MCH 30.1 pg (26.0-34.0); MCHC 32.6 g/dL (31.0-37.0); MCV 92.3 fL (80.0-100.0); MEAN PLATELET VOLUME 9.9 fL (7.4-10.4); PLATELET COUNT 143 10x3/uL (130-400); RBC 2.99 10x6/uL (4.00-5.40); RDW 13.7 % (11.5-14.5); WBC 20.7 10x3/uL (4.8-10.8)
[2018-12-10 18:13] LABS: ALBUMIN 2.3 g/dL (3.4-5.0); ALKALINE PHOSPHATASE 79 U/L (46-116); ALT (SGPT) 31 U/L (10-68); BILIRUBIN - TOTAL 0.57 mg/dL (0.2-1.3); CALC OSMOLALITY 284 mosm/kg (275-300); CALCIUM 7.4 mg/dL (8.5-10.1); CARBON DIOXIDE 23.2 mmol/L (21.0-32.0); CHLORIDE - SERUM 105 mmol/L (98-107); CREATININE - SERUM 0.8 mg/dL (0.6-1.3); GLUCOSE 204 mg/dL (74-106); POTASSIUM - SERUM 4.2 mmol/L (3.5-5.1); PROTEIN - SERUM 4.9 g/dL (6.4-8.2); SODIUM 139 mmol/L (136-145); UREA NITROGEN 15 mg/dL (7-18); eGFR NON AFRICAN AMERICAN 75 mL/min (90-120)
--- NOTE | 2018-12-10 18:28 | NUR ---
EDP NOTIFIED OF PT'S BP OF 76/39. PT PLACED IN MODIFIED TRENDELEBERG.
--- NOTE | 2018-12-10 18:38 | MORECARE ---
CASE MANAGEMENT DISCHARGE SUMMARY PATIENT: MARLEE VOSS UNIT: [id number] ADM DATE: 12/10/18 AGE: 73 : [birth year] SEX: F ROOM/BED: D.[facility] AUTHOR: MANSI,DOC PHYSICIAN: REFERRING PHYSICIAN: STEFANIA RIVAS MD DATE OF SERVICE: 12/10/18 Discharge Plan Patient Name: MARLEE VOSS Facility: [facility]:[place] : 1945 Planned Disposition: Home Anticipated Discharge Date: 12/13/18 Discharge Date: Expected LOS: 3 Initial Reviewer: [email or web address] Initial Review Date: 12/10/2018 Generated: 12/10/18 7:38 pm Comments DCP- Discharge Planning Updated by [email or web address]: Jayda Woods on 12/10/18 5:[address] DC PLAN: Return home with . ANTICIPATED DC NEEDS: Denied known dc needs at this time. CM met with patient to complete initial dc planning assessment. CM educated patient on the CM role and verbal consent given by patient to complete assessment. CM verified patient's address, phone number, and emergency contact phone numbers. Patient lives at home with her . At discharge patient plans to return home with her and feels this is a safe discharge. CM discussed availability of home health, rehab services, and medical equipment. Patient denied known discharge needs at this time. Patient reports her daughter will transport her home at time of discharge. CM will continue to follow and will assist as needed with dc plans/needs. Jayda Woods RN, [facility] DCPIA - Discharge Planning Initial Assessment Updated by [email or web address]: Jayda Woods on 12/10/18 6:36 pm * Is the patient Alert and Oriented? Yes * How many steps to enter\exit or inside your home? One * PCP [facility] * Pharmacy [facility] * Preadmission Environment Home with Family * ADLs Independent * Equipment Cane * List name and contact numbers for known caregivers / representatives who currently or will assist patient after discharge: Elysia Godfrey - daughter - [phone] Teresa Rosas - friend - [phone] * Verbal permission to speak to the caregivers and representatives has been obtained from the patient. Yes * Community resources currently utilized None * Additional services required to return to the preadmission environment? No * Can the patient safely return to the preadmission environment? Yes * Has this patient been hospitalized within the prior 30 days at any hospital? Yes Patient Name: MARLEE VOSS Page [id number] at 1838 All edits/amendments must be made on the electronic document DICTATION DATE: 12/10/181837 HOUSEKEEPING COORDINATOR: JOSE 12/10/181837 RPT#: [id number] DC DATE: STATUS: ADM IN [facility] [address] [place] [address] END OF REPORT
[2018-12-10 18:54] LABS: LYMPHOCYTES 11 % (15-50); MONOCYTES 2 % (2-11); NEUTROPHILS 87 % (40-80); PLATELET ESTIMATE NORMAL
--- NOTE | 2018-12-10 19:30 | NUR ---
PT RECIEVED FROM ED VIA STRETCHER. MONITOR EQUIP ESTABLISHED. SR PER CM. AFEBRILE.BILATERAL PIV'S WITH NS INFUSING AT 75 ML/HR. DENIES PAIN AT THIS TIME. BRUISING NOTED AT CATH SITE (RIGHT GROIN). PT STATES THAT SHE CAME TO HOSPITAL DUE TO PAIN IN R FLANK AND DOWN RIGHT LEG. GIVEN 1 UNIT PRBC PHOTOGRAPHER APPRENTICE LITHOGRAPHIC.
--- NOTE | 2018-12-10 20:15 | NUR ---
SHERITA HIGGINS APN AT BEDSIDE.
--- NOTE | 2018-12-10 20:25 | NUR ---
DR OLIVER NOTIFIED OF CONSULT AND UPDATED ON PT CONDITION. DR JASPER MALHOTRA.
--- NOTE | 2018-12-10 21:00 | NUR ---
FAMILY REMAIN AT BEDSIDE. QUESTIONS ANSWERED. PT DENIES NEEDS
[2018-12-10 21:01] LABS: HEMOGLOBIN 8.7 g/dL (12-16)
[2018-12-10 21:19] LABS: INR 1.2 (0.85-1.17); PROTIME 14.7 SECONDS (11.6-15.0)
[2018-12-11] VITALS (31 sets, daily range): BP systolic 87–149; BP diastolic 41–75; Ht 170.2 cm; Wt 66.8 kg
[2018-12-11 00:43] LABS: CKMB 1.3 U/L (0.0-3.6); CREATINE KINASE 90 UL (21-215)
[2018-12-11 00:51] LABS: TROPONIN-I 2.535 ng/mL (0.000-0.060)
[2018-12-11 06:18] LABS: CALCIUM 7.3 mg/dL (8.5-10.1); CARBON DIOXIDE 23.4 mmol/L (21.0-32.0); CHLORIDE - SERUM 108 mmol/L (98-107); CREATINE KINASE 84 UL (21-215); MAGNESIUM - SERUM 1.8 mg/dL (1.8-2.4); PHOSPHOROUS 2.8 mg/dL (2.5-4.9); SODIUM 140 mmol/L (136-145); UREA NITROGEN 17 mg/dL (7-18)
[2018-12-11 06:23] LABS: CALC OSMOLALITY 282 mosm/kg (275-300); CREATININE - SERUM 0.5 mg/dL (0.6-1.3); GLUCOSE 133 mg/dL (74-106); TROPONIN-I 2.571 ng/mL (0.000-0.060); eGFR NON AFRICAN AMERICAN > 90 mL/min (90-120)
[2018-12-11 06:45] LABS: BASOPHILS 0.1 % (0-2); EOSINOPHILS 0.3 % (0-7); HEMATOCRIT 22.4 % (36.0-48.0); IMMATURE GRANULOCYTES 0.2 % (0-5); LYMPHOCYTES 20.1 % (15-50); MCH 30.2 pg (26.0-34.0); MCHC 33.5 g/dL (31.0-37.0); MEAN PLATELET VOLUME 10.1 fL (7.4-10.4); MONOCYTES 6.9 % (2-11); NEUTROPHILS 72.4 % (40-80); PLATELET COUNT 143 10x3/uL (130-400); RBC 2.48 10x6/uL (4.00-5.40); RDW 13.7 % (11.5-14.5)
--- NOTE | 2018-12-11 07:00 | NUR ---
DR RIVAS NOTIFIED VIA PHONE OF H&H DROP. ORDERS RWECIEVED TO GIVE 2 UNITS PRBC AND TO NOTIFY DR OLIVER OF DECREASE.
--- NOTE | 2018-12-11 07:15 | NUR ---
DR OLIVER NOTIFIED OF H&H TRENDING DOWN AND THE ORDER FOR 2 UNITS PRBC. NO NEW ORDERS AT THIS TIME.
[2018-12-11 07:28] LABS: WBC 13.4 10x3/uL (4.8-10.8)
[2018-12-11 07:29] LABS: HEMOGLOBIN 7.5 g/dL (12-16); MCV 90.3 fL (80.0-100.0)
[2018-12-11 07:31] LABS: APPEARANCE CLEAR (CLEAR); BILIRUBIN NEGATIVE (NEGATIVE); COLOR YELLOW (YELLOW); GLUCOSE NEGATIVE (NEGATIVE); KETONE NEGATIVE (NEGATIVE); NITRITE NEGATIVE (NEGATIVE); PROTEIN NEGATIVE (NEGATIVE); UROBILINOGEN NORMAL (NORMAL)
--- NOTE | 2018-12-11 08:07 | NUR ---
SHIFT ASSESSMENT COMPLETE. PT A&O. C/O LEFT FLANK SHARPNESS THAT COMES AND GOES. BRUISING NOTED TO RIGHT GROIN THAT IS STARTING TO TURN COLORS.
--- NOTE | 2018-12-11 08:56 | NUR ---
1ST UNIT PRBC STARTED. DR OLIVER HAS BEEN IN TO SPEAK TO PATIENT AND DAUGHTER. NO SURGICAL INTERVENTION AT THIS POINT, WILL CONTINUE TO MONITOR
[2018-12-11 10:33] LABS: HEMOGLOBIN 8.2 g/dL (12-16)
--- NOTE | 2018-12-11 10:45 | NUR ---
2ND UNIT PRBC STARTED
[2018-12-11 11:01] LABS: CKMB 1.3 U/L (0.0-3.6); CREATINE KINASE 93 UL (21-215)
[2018-12-11 11:02] LABS: TROPONIN-I 2.134 ng/mL (0.000-0.060)
[2018-12-11 11:28] LABS: PLT FUNCT.(P2Y12) PLAVIX 178 PRU (194-418)
--- NOTE | 2018-12-11 17:00 | NUR ---
PT AND DAUGHTER SET UP IN BATHROOM FOR BATH. ASSISTED NEEDED. ALL NEW LINENS.
[2018-12-11 18:53] LABS: HEMATOCRIT 31.1 % (36.0-48.0); HEMOGLOBIN 10.6 g/dL (12-16)
[2018-12-12] VITALS (12 sets, daily range): BP systolic 130–164; BP diastolic 64–85
[2018-12-12 04:38] LABS: BASOPHILS 0.2 % (0-2); EOSINOPHILS 3.2 % (0-7); HEMATOCRIT 29.7 % (36.0-48.0); HEMOGLOBIN 10.2 g/dL (12-16); IMMATURE GRANULOCYTES 0.3 % (0-5); LYMPHOCYTES 21.8 % (15-50); MCH 30.8 pg (26.0-34.0); MCHC 34.3 g/dL (31.0-37.0); MCV 89.7 fL (80.0-100.0); MEAN PLATELET VOLUME 9.6 fL (7.4-10.4); MONOCYTES 8.9 % (2-11); NEUTROPHILS 65.6 % (40-80); PLATELET COUNT 149 10x3/uL (130-400); RDW 13.7 % (11.5-14.5); WBC 14.1 10x3/uL (4.8-10.8)
[2018-12-12 04:49] LABS: RBC 3.31 10x6/uL (4.00-5.40)
[2018-12-12 04:55] LABS: CALC OSMOLALITY 277 mosm/kg (275-300); CALCIUM 7.8 mg/dL (8.5-10.1); CARBON DIOXIDE 25.3 mmol/L (21.0-32.0); CHLORIDE - SERUM 106 mmol/L (98-107); CREATININE - SERUM 0.4 mg/dL (0.6-1.3); GLUCOSE 119 mg/dL (74-106); MAGNESIUM - SERUM 1.8 mg/dL (1.8-2.4); POTASSIUM - SERUM 3.9 mmol/L (3.5-5.1); SODIUM 140 mmol/L (136-145); eGFR NON AFRICAN AMERICAN > 90 mL/min (90-120)
[2018-12-12 05:04] LABS: PHOSPHOROUS 1.8 mg/dL (2.5-4.9); UREA NITROGEN 8 mg/dL (7-18)
--- NOTE | 2018-12-12 07:00 | NUR ---
SHIFT ASSESSMENT COMPLETED. PT CARE ASSUMED. MONITORS ON AND WORKING, VITALS STABLE, PT AWAKE AND ALERT. PT UP TO BATHROOM AD NIKUNJ. SEE FLOW SHEET FOR FURTHER DETAILS. CALL LIGHT WITHIN REACH, WILL CONTINUE TO OBSERVE.
--- NOTE | 2018-12-12 10:00 | NUR ---
CARDIO OFFICE CONTACTED, SPOKE WITH RUFUS, REC'D CALL BACK VERIFYING [facility] IS OKAY WITH DISCHARGING PT HOME AND WILL RESCHEDULE APPT FOR A LATER DATE. REC'D DISCHARGE ORDERS PER DR RIVAS WELL.
--- NOTE | 2018-12-12 12:00 | NUR ---
FOLLOW UP APPT MADE FOR Dec AT 1000 WITH CARDIOLOGY, PT AND FAMILY AWARE OF APPT. DISCHARGE INSTRUCTIONS GIVEN, PT AND FAMILY STATES UNDERSTANDING. PT DENIES ANY COMPLAINT OF PAIN OR DISCOMFORT AT THIS TIME, PT ASSISTED INTO FAMILY VEHICLE VIA WHEELCHAIR. ALL PERSONAL BELONGINGS AND DISCHARGE INSTRUCTIONS ARE WITH FAMILY.
--- NOTE | 2018-12-12 12:31 | NUR ---
SPOKE WITH DR OLIVER. SWETHA FOR PT TO D/C HOME.
--- NOTE | 2018-12-12 20:30 | MORECARE ---
CASE MANAGEMENT DISCHARGE SUMMARY PATIENT: MARLEE VOSS UNIT: [id number] ADM DATE: 12/10/18 AGE: 73 : [birth year] SEX: F ROOM/BED: D[facility] AUTHOR: MANSIDOC PHYSICIAN: REFERRING PHYSICIAN: STEFANIA RIVAS MD DATE OF SERVICE: 12/12/18 Discharge Plan Patient Name: MARLEE VOSS Facility: [facility]:[place] : 1945 Planned Disposition: Home Anticipated Discharge Date: 12/13/18 Discharge Date: 12/12/2018 Expected LOS: 3 Initial Reviewer: [email or web address] Initial Review Date: 12/10/2018 Generated: 12/12/18 9:29 pm DCP- Discharge Planning Updated by [email or web address]: Jyada Woods on 12/10/18 5:[address] DC PLAN: Return home with . ANTICIPATED DC NEEDS: Denied known dc needs at this time. CM met with patient to complete initial dc planning assessment. CM educated patient on the CM role and verbal consent given by patient to complete assessment. CM verified patient's address, phone number, and emergency contact phone numbers. Patient lives at home with her . At discharge patient plans to return home with her and feels this is a safe discharge. CM discussed availability of home health, rehab services, and medical equipment. Patient denied known discharge needs at this time. Patient reports her daughter will transport her home at time of discharge. CM will continue to follow and will assist as needed with dc plans/needs. Jayda Woods RN, [facility] DCPIA - Discharge Planning Initial Assessment Updated by [email or web address]: Jayda Woods on 12/10/18 6:36 pm * Is the patient Alert and Oriented? Yes * How many steps to enter\exit or inside your home? One * PCP [facility] * Pharmacy [facility] [place] * Preadmission Environment Home with Family * ADLs Independent * Equipment Cane * List name and contact numbers for known caregivers / representatives who currently or will assist patient after discharge: Elysia Godfrey - daughter - [phone] Teresa Rosas - friend - [phone] * Verbal permission to speak to the caregivers and representatives has been obtained from the patient. Yes * Community resources currently utilized None * Additional services required to return to the preadmission environment? No * Can the patient safely return to the preadmission environment? Yes * Has this patient been hospitalized within the prior 30 days at any hospital? Yes Last DP export: 12/10/18 5:38 p Patient Name: MARLEE VOSS Page [id number] at 2030 All edits/amendments must be made on the electronic document DICTATION DATE: 12/12/182028 MANUSCRIPT READER: JOSE 12/12/182028 RPT#: [id number] DC DATE:12/12/18 STATUS: DIS IN [facility] [address] [place] [address] END OF REPORT
== END 2018-12-12 12:36 | disposition home or self-care (01) | DRG 919 ==
LOC: D.ER 17:21 → D.CVICU 18:09
PROVIDERS: Family Medicine; Thoracic Surgery (Cardiothoracic Vascular Surgery); ADMIT Internal Medicine Nephrology; ATTEND Internal Medicine Nephrology
DX: I97.610 Postprocedural hemorrhage of a circulatory system organ or structure following a cardiac catheterization (principal); R57.8 Other shock; D62 Acute posthemorrhagic anemia; R58 Hemorrhage, not elsewhere classified; I10 Essential (primary) hypertension; E11.69 Type 2 diabetes mellitus with other specified complication; K21.9 Gastro-esophageal reflux disease without esophagitis; F41.8 Other specified anxiety disorders; I25.10 Atherosclerotic heart disease of native coronary artery without angina pectoris

== ENCOUNTER 2018-12-31 11:32 | Outpatient (CLI) | payer MEDICARE ==
[~2018-12-31] VITALS: Ht 170.2 cm; Wt 63.2 kg
--- NOTE | ~2018-12-31 | HEMODYNAMI ---
PATIENT:MARLEE VOSS MEDICAL RECORD: [id number] : 49 LOCATION:[facility] ADMISSION DATE: 12/31/18 Generatedon:12/31/201814:03 Patient name: MARLEE VOSS Patient #: [id number] SSN: [id number] : 1945 Date of study: 12/31/2018 Page: Of Hemodynamic Procedure Report Patient Data Patient Demographics Procedure consent was obtained First Name: MARLEE Gender: Female Last Name: SHANIKA : 1945 Middle Initial: J Age: 73 year(s) Patient #: [id number] Race: SSN: [id number] Additional ID: [id number] Contact details [address]: [address] [place] [address] State: [place] City: [place] Zip code: [address] Past Medical History Allergies Allergen Reaction Date Comments Reported Other 12/07/2018 CINDAMYCIN, LISINOPRIL, allergy BACTRIM Other 12/31/2018 bactrim/clindamycin/lisinopril allergy Admission Admission Data Admission Date: 12/31/2018 Admission Time: 11:32 Arrival Date: 12/31/2018 Arrival Time: 0:00 Admit Source: Other Insurance Payor: Medicare [facility] #: [id number] Height (in.): 66.93 BSA: 1.73 (m2) Height (cm.): 170 BMI: 21.8 (kg/m2) Weight (lbs.): 138.89 Weight (kg.): 63 Lab Results Lab Result Date: 12/31/2018 Lab Result Time: 0:00 Biochemistry Name Units Result Min Max BUN mg/dl 12 --(-*--)-- 7 18 Creatinine mg/dl 0.5 -*(----)-- 0.6 1.3 eGFR ml/min 90 --(*---)-- 90 120 NONAFRICAN CBC Name Units Result Min Max Hemoglobin g/dl 11 *-(----)-- 13.5 17.5 Procedure Procedure Types Cath Procedure Diagnostic Procedure Sedation Charges Moderate Sedation up to 15 minutes PCI Procedure Coronary Stent Coronary Stent Initial Procedure Description Procedure Date Procedure Date: 12/31/2018 Procedure Start Time: 13:48 Procedure End Time: 14:01 Procedure Staff Name Function Rayne Encarnacion RT Monitor Nesha Lamb RT Monitor Matthew Rebollar RN Nurse Shania Fisher RT Scrub Westley Morillo MD Performing Physician Indication CAD Procedure Data Cath Procedure Fluoroscopy Diagnostic fluoroscopy Total fluoroscopy Time: 1.4 time: 1.4 min min Diagnostic fluoroscopy Total fluoroscopy dose: 61 dose: 61 mGy mGy Contrast Material Contrast Material Type Amount (ml) Isovue 300 30 Entry Location Entry Primary Successful Side Size Upsize Upsize Entry Closure Succes sful Closure Location (Fr) 1 (Fr) 2 (Fr) Remarks Device Remarks Femoral Left 6 Fr Exoseal artery Short Estimated blood loss: 10 ml Procedure Complications No complications Procedure Medications Medication Administration Route Dosage 0.9% NaCl I.V. 100 ml/hr Oxygen etCO2 Nasal cannula 2 l/min Heparin Flush Bag added to field 2 bags (1000units/500ml NS) Lidocaine 2% added to field 20 Versed I.V. 2 mg Fentanyl I.V. 100 mcg Heparin Bolus I.V. 5000 units Hemodynamics Rest BSA: 1.73 (m2) HGB: 11 (g/dl) O2 Consumption: Estimated: 159.66 (ml/min) O2 Cons umption indexed: Estimated:92.29 (ml/min/m) Heart Rate: 71 (bpm) Snapshots Pre Cath Intra NCS Post Cath Vital Signs Time Heart Resp SPO2 etCO2 NIBP (mmHg) Rhythm Pain Sedation Rate (ipm) (%) (mmHg) Status Level (bpm) 13:36:33 72 26 0 133/77(111) NSR 0 (11) 10(A) , No pain 13:40:45 68 10 95 37.5 127/72(109) NSR 0 (11) 10(A) , No pain 13:44:55 67 13 94 36 124/73(101) NSR 0 (11) 10(A) , No pain 13:49:03 74 18 93 31.5 129/75(107) NSR 0 (11) 10(A) , No pain 13:53:13 75 11 93 38.2 127/71(100) NSR 0 (11) 9(A) , No pain 13:57:25 79 19 94 36.7 126/68(93) NSR 0 (11) 10(A) , No pain 14:01:37 75 13 93 33 112/65(89) NSR 0 (11) 10(A) , No pain Medications Time Medication Route Dose Verified Delivered Reason Notes Effectiveness by by 13:39:07 0.9% NaCl I.V. 100 Matthew Matthew Per physician ml/hr Smooth Rebollar RN RN 13:39:19 Oxygen etCO2 2 Matthew Matthew for low 02 sats Nasal l/min Smooth Rebollar cannula RN RN 13:39:30 Heparin Flush added 2 Matthew Matthew used for Bag to bags Smooth Rebollar procedure (1000units/500ml RN RN NS) 13:39:40 Lidocaine 2% added 20ml Matthew Matthew for local to vial Smooth Rebollar anesthetic field MONTALVO RN 13:49:45 Versed I.V. 2 mg Matthew Matthew for sedation Smooth Rebollar RN RN 13:49:55 Fentanyl I.V. 100 Matthew Matthew for sedation mcg Smooth Rebollar RN RN 13:52:41 Heparin Bolus I.V. 5000 Matthew Matthew for units Smooth Rebollar anticoagulation RN biochemical engineer Log Time Note 13:21:55 Informed consent obtained and on chart 13:22:58 Indication : CAD 13:23:04 Matthew Rebollar RN sent for patient. Start room use. 13:23:07 Time tracking: Regular hours (M-F 7:00 - 5:00) 13:23:15 Procedure Status Elective Heart Cath (OP). 13:23:30 Plan of Care:Hemodynamics will remain stable., Cardiac rhythm will remain stable., Comfort level will be maintained., Respiratory function will remain adequate., Patient/ family verbilizes understanding of procedure., Procedure tolerated without complication., Recovers from procedure without complications.. 13:25:48 ACC Patient presents with Stable Angina CCS Anginal Class 2--Slight limitation of ordinary activity. 13:28:17 ACCPatient has been prescribed/administered the following anti-anginal medication within the last 2 weeks: None 13:30:44 Patient received from Pre/Post Procedure Room to CCL 1 Alert and oriented. Tansferred to table in Supine position. 13:30:47 Warm blankets applied, and marco hugger turned on for patient comfort. 13:30:48 Correct patient and procedure confirmed by team. 13:30:50 ECG and BP/O2 sat monitors applied to patient. 13:31:45 Lab Result : eGFR NONAFRICAN 90 ml/min 13:31:45 Lab Result : Hemoglobin 11 g/dl 13:31:45 Lab Result : BUN 12 mg/dl 13:31:45 Lab Result : Creatinine 0.5 mg/dl 13:31:51 Arrival Date: 12/31/2018 12:00:00 AM 13:32:10 Insurance Payor : Medicare 13:32:16 Patient Height : 66.93 inches 13:32:23 Patient Weight : 138.89 lbs 13:32:31 Admit Source: Other 13:35:29 Vital chart was started 13:35:32 Baseline sample Acquired. 13:36:14 Risk of Mortality: 0.2 13:36:20 Risk of blood transfusion: 1.7 13:36:25 Risk of ASH: 2.0 13:36:55 Rhythm: sinus rhythm 13:36:57 Full Disclosure recording started 13:36:58 - 13:37:04 H&P Date Dictated: 12/31/2018 H&P Addendum completed by physician on da y of procedure. (MUST COMPLETE FOR ALL OUTPATIENTS), New H&P dictated by physician.. 13:37:07 Pre-procedure instructions explained to patient. 13:37:08 Pre-op teaching completed and patient verbalized understanding. 13:37:10 Family in patients room. 13:37:13 Patient NPO since Midnight. 13:37:54 Patient allergic to Other allergybactrim/clindamycin/lisinopril 13:38:01 Is the patient allergic to Iodine/contrast media? No. 13:38:03 Was the patient premedicated? Yes 13:38:22 Is patient on blood thinner?Yes 13:38:27 ACC The patient was administered the following blood thiners within the last 24 hours: ACCPlavix 13:38:34 Patient diabetic? Yes. 13:38:36 If diabetic: On Metformin? Yes 13:38:50 If on Metformin: Last Dose? 12/29/2018 13:38:54 Patient not . Patient is over age 55. 13:38:56 ----Pre-sedation anethsthesia assessment.---- 13:39:01 Previous problem with sedation/anesthesia? No ? 13:39:05 Snore? Yes 13:39:07 0.9% NaCl 100 ml/hr I.V. was administered by Matthew Rebollar RN; Per physician; Verbal order read back and verified. 13:39:07 Sleep apnea? No 13:39:09 Deviated septum? No 13:39:11 Opens mouth fully? Yes 13:39:12 Sticks out tongue? Yes 13:39:19 Oxygen 2 l/min etCO2 Nasal cannula was administered by Matthew Rebollar RN; for low 02 sats; Verbal order read back and verified. 13:39:21 Airway obstruction? No ? 13:39:25 Dentures? No ? 13:39:30 Heparin Flush Bag (1000units/500ml NS) 2 bags added to field was administered by Matthew Rebollar RN; used for procedure; Verbal order read back and verified. 13:39:40 Lidocaine 2% 20ml vial added to field was administered by Matthew Rebollar RN; for local anesthetic; Verbal order read back and verified. 13:40:23 Pre procedure: left dorsailis pedis pulse 1+ Palpable, but thready & weak; easily obliterated 13:40:30 Patient pain scale 0/10 ?. 13:40:45 IV patent on arrival in left forearm with [facility]. 13:40:51 Lab results completed and on chart. 13:41:23 Stress Test: no; N/A bring back pci 13:41:31 Left groin area was prepped with chlora-prep and draped in sterile fashion 13:41:33 Alarms reviewed by R. N. 13:41:34 Sharps counted by scrub and verified by R.N. 13:41:35 Physician arrived 13:41:36 --------ALL STOP TIME OUT------ 13:41:40 Final Timeout: patient, procedure, and site verified with staff and physician. All members of the team are in agreement. 13:41:42 Left groin site verified by team. 13:41:48 Fire Safety Assessment: A--An alcohol-based skin anteseptic being used preoperatively., C--Open oxygen or nitrous oxide is being used., D--An ESU, laser, or fiber-optic light is being used. 13:42:07 1) 90+ Normal kidney functon but urine findings or structural abnormalities or genetic trait point to kidney disease. 13:42:16 Maximum allowable contrast dose (3.7 X eGFR X 0.75)250 ml. 13:42:22 Sedation plan: IV Moderate Sedation Medication:Versed, Fentanyl 13:42:28 Physical assessment completed. ASA score P 2 - A patient with mild systemic disease as per Westley Morillo MD. 13:43:13 Use device set CATH PACK 13:43:15 EMERALD Guide Wire (502-838) opened to sterile field. 13:43:17 Bag Decanter (2002S) opened to sterile field. 13:43:18 Medline Cath Pack ([id number]) opened to sterile field. 13:43:19 ACIST Manifold (19609) opened to sterile field. 13:43:20 ACIST Hand Control (15300) opened to sterile field. 13:43:21 ACIST Syringe (10248) opened to sterile field. 13:44:13 INFLATOR Merit BasixCompak (CN4969) opened to sterile field. 13:44:14 SHEATH 6FR [place] (AOK246) opened to sterile field. 13:44:20 GUIDE 6FR HS I catheter (LA6HSI) opened to sterile field. 13:44:21 WHISPER 300cm guide wire ([id number]) opened to sterile field. 13:48:15 Zero performed for pressure channel P1 13:48:23 Procedure started. 13:48:56 Local anesthetic to left femerol artery with Lidocaine 2% by Westley Morillo MD.INITIAL ACCESS ONLY 13:49:16 Zero performed for pressure channel P1 13:49:45 Versed 2 mg I.V. was administered by Matthew Lorigan RN; for sedation; Verbal order read back and verified. 13:49:55 Fentanyl 100 mcg I.V. was administered by Matthew Rebollar RN; for sedation; Verbal order read back and verified. 13:50:20 A 6 Fr Short sheath was inserted into the Left Femoral artery 13:50:36 6 Fr hs1 guide catheter was inserted over the wire 13:52:41 Heparin Bolus 5000 units I.V. was administered by Matthew Rebollar RN; for anticoagulation; Verbal order read back and verified. 13:53:33 Pre PCI Site: [place] mRCA has 80% stenosis. 13:53:42 WHISPER 300 wire advanced. 13:55:15 Place stent Inflation Number: 1 A MARIANO OTW 3.0 x 12 stent ([id number]) was prepped and advanced across the Mid RCA . The stent was deployed at 14 CLAUDIA for 0:10 (min:sec) . 13:55:31 Stent catheter was removed intact over wire. 13:55:34 Wire removed. 13:55:35 Guide catheter removed. 13:55:41 ACT drawn and resulted at 263 seconds. (normal therapeutic range 180-24 0 seconds). 13:55:59 EXOSEAL 6Fr (EX600) opened to sterile field. 13:56:18 Sheath removed intact; hemostasis achieved with Exoseal to the Left Femoral artery. 13:56:41 Contrast amount:Isovue 300 30ml. 13:56:45 Procedure ended.(Physican Out) 13:57:16 Fluoroscopy time 01.40 minutes. 13:57:34 Flurop Dose total: 61 13:57:34 Fluoroscopy dose: 61 mGy 13:57:43 Dose Area Product 3058 mGy/cm. 13:57:48 Maximum allowable dose exceeded? No. 13:57:50 Sharps counted by scrub and verified by R.N. 13:57:59 Insertion/operative site no bleeding no hematoma. 13:58:06 Post-op/insertion site Left Femoral artery dressed using a 4 x 4 and Tegaderm. 13:58:12 Post left femerol artery:stable 13:58:16 Post Procedure Pulses reassessed and unchanged 13:58:21 Post-procedure physical assessment completed. ASA score P 2 - A patient with mild systemic disease as per Westley Morillo MD. 13:58:25 Post procedure rhythm: unchanged. 13:58:29 Estimated blood loss: 10 ml 13:58:33 Post procedure instruction explained to patient.Patient verbalizes understanding. 13:58:35 Patient needs reinforcement of post procedure teaching. 13:59:21 Procedure type changed to Cath procedure, Diagnostic procedure, Sedatio n Charges, Moderate Sedation up to 15 minutes, PCI procedure, Coronary Stent, Coronary Stent Initial 14:00:13 Procedure and supply charges have been captured, reviewed, submitted an d are correct. 14:00:48 Procedure Complication : No complications 14:01:13 Vital chart was stopped 14:01:16 [facility] Findings: MVD- PCI performed (see procedure note) 14:01:21 Operative report dictated upon procedure completion. 14:01:22 See physician's report for complete and final results. 14:01:24 Report given to Pre/Post Procedure Room. 14:01:28 Patient transfered to Pre/Post Procedure Room with Stretcher. 14:01:31 Procedure ended. 14:01:31 Full Disclosure recording stopped 14:01:51 End room use (Document Last) 14:03:00 End room use (Document Last) Intervention Summary Intervention Notes Time ActionType Lesion and Equipment Action# Pressure Duration Attributes Used 13:55:15 Place stent Mid RCA MARIANO OTW 3.0 1 14 00:10 x 12 stent ([id number]) Device Usage Item Name Manufacture Quantity Catalog Hospital Part Current Mini [facility] Lot# / Number Charge Number Stock Stock Serial# Code JN Balderrama [place] 1 042-142 [id number] [id number] 5 Azure Power [facility] (204-867) Bag Decanter Microtek 1 [id number] 71498 491261 5 () Medical Inc. Medline Cath Medline 1 [id number] 638134 37756 858891 5 Pack ([id number]) ACIST Acist 1 32262 388970 820558 827738 5 Manifold Medical (25003) Systems Inc ACIST Hand Acist 1 59855 265552 175650 762345 5 Control Medical (33455) Systems Inc ACIST Syringe Acist 1 84429 211596 737563 727531 20 (22139) Medical Systems Inc INFLATOR Merit 1 [id number] 065514 300029 874293 15 Chef Dovunque BasixCompak (EH9470) SHEATH 6FR Terumo 1 [id number] 389834 334489 325432 40 [place] (UPS979) GUIDE 6FR HS Medtronic 1 LA6HSI 940098 78246 065807 1 I catheter (LA6HSI) WHISPER 300cm [place] 1 [id number] 958393 804092 737800 5 guide wire Vascular ([id number]) MARIANO OTW 3.0 Medtronic 1 [id number] 405232 5825884 469986 5 [id number] x 12 stent ([id number]) EXOSEAL 6Fr Cardinal 1 EX600 475258 332900 002264 10 (EX600) Health Signature Audit [place] Stage Time Signature Unsigned Intra-Procedure 12/31/2018 Nesha 2:02:24 PM Zainab RT(R) (CV) Intra-Procedure 12/31/2018 Matthew 2:03:00 PM Smooth MONTALVO Intra-Procedure 12/31/2018 Westley Restrepo 2:03:29 PM Jose [facility] [address] [place] [address]
[2018-12-31] MEDS ORDERED: ASPIRIN325 MG PO (11:48)
[2018-12-31] MEDS ORDERED: CLARITIN 10 MG10 MG PO (11:49)
[2018-12-31 12:01] VITALS: BP 142/70; Ht 170.2 cm; Wt 63.2 kg
[2018-12-31 12:17] LABS: BASOPHILS 0.3 % (0-2); EOSINOPHILS 2.3 % (0-7); HEMATOCRIT 33.9 % (36.0-48.0); IMMATURE GRANULOCYTES 0.3 % (0-5); LYMPHOCYTES 26.5 % (15-50); MCH 29.5 pg (26.0-34.0); MCHC 32.4 g/dL (31.0-37.0); MCV 90.9 fL (80.0-100.0); MEAN PLATELET VOLUME 9.1 fL (7.4-10.4); MONOCYTES 9.8 % (2-11); NEUTROPHILS 60.8 % (40-80); RBC 3.73 10x6/uL (4.00-5.40); RDW 13.5 % (11.5-14.5); WBC 10.5 10x3/uL (4.8-10.8)
[2018-12-31 12:18] LABS: PLATELET COUNT 375 10x3/uL (130-400)
[2018-12-31 12:30] LABS: ALT (SGPT) 38 U/L (10-68); CALC OSMOLALITY 275 mosm/kg (275-300); CALCIUM 9.3 mg/dL (8.5-10.1); CARBON DIOXIDE 28.7 mmol/L (21.0-32.0); CHLORIDE - SERUM 102 mmol/L (98-107); CHOL - HDL RATIO 2.7 ratio (2.3-4.1); CHOLESTEROL, TOTAL 84 mg/dL (0-200); CREATININE - SERUM 0.5 mg/dL (0.6-1.3); GLUCOSE 127 mg/dL (74-106); HDL CHOLESTEROL 31 mg/dL (32-96); LDL CHOLESTEROL 37 mg/dL (0-100); LDL-HDL RATIO 1.2 ratio (1.5-3.5); POTASSIUM - SERUM 3.4 mmol/L (3.5-5.1); SODIUM 137 mmol/L (136-145); TRIGLYCERIDE 81 mg/dL (30-200); UREA NITROGEN 12 mg/dL (7-18); eGFR NON AFRICAN AMERICAN > 90 mL/min (90-120)
--- NOTE | 2018-12-31 14:25 | NUR ---
PT SLEEPING INTERMITTENTLY, AWAKENS EASILY. NSR, RATE IS 66. BP IS 124/65. DRESSING CDI LEFT GROIN, PEDAL PULSES PALPABLE. HOB IS FLAT, SIDE RAILS UP X2, BED LOCKED AND LOW. CALL LIGHT IN REACH. PT INSTRUCTED TO KEEP HEAD FLAT TO PILLOW AND LEFT LEG STRAIGHT AND VERBALIZES UNDERSTANDING. NO FAMILY AT BEDSIDE.
--- NOTE | 2018-12-31 14:36 | NUR ---
PT ALERT, DENIES ANY C/O. DRESSING IS CDI TO LEFT GROIN, PEDAL PULSES PALPABLE. HOB IS FLAT. NSR RATE 66, BP IS 118/63. RESP WITH EASE ON 2LPM, SAT IS 95%. WILL CONTINUE TO MONITOR.
--- NOTE | 2018-12-31 14:54 | NUR ---
PT ALERT, DENIES ANY C/O PAIN. MAHI SIPS OF PO FLUIDS WITH NO C/O NAUSEA. NSR, RATE IS 65, BP IS 124/65. DRESSING CDI LEFT GROIN, PEDAL PULSES PALPABLE. CALL LIGHT IN REACH, HOB IS FLAT.
--- NOTE | 2018-12-31 15:10 | NUR ---
PT ALERT, DENIES ANY C/O. DRESSING IS CDI LEFT GROIN, PEDAL PULSES PALPABLE. HOB IS FLAT. VSS, PT DENIES NEEDS AT THIS TIME.
--- NOTE | 2018-12-31 15:17 | OP ---
PATIENT NAME: MARLEE VOSS MEDICAL RECORD: [id number] :[birth year] LOCATION:D.[facility] ADMISSION DATE: SURGEON: UMANG MESSER MD DATE OF OPERATION: 12/31/2018 PROCEDURE: PTCA stent report to the right coronary artery. For previous report, please see dictation at the time of [place], known residual 80% stenosis to the right coronary artery. DESCRIPTION OF PROCEDURE: After a 6-Latvian sheath placed in the left femoral artery, a hockey stick guide catheter provided excellent guide catheter support. This was followed by 300 cm Whisper wire, which was placed across the tightly occluded right down this portion of vessel. Stent deployed was a 3.0 x 12 mm Christiano stent up to 14 atmospheres for 45 seconds. Final angiography showed excellent resolution of 80% right coronary artery stenosis without significant residual. YOSELYN flow was 3 throughout the procedure. The patient was previously on Plavix. Heparin was used during the case. Sheath was closed with ExoSeal device. TRANSINT:[id number] Voice Confirmation ID: [id number] DOCUMENT ID: [id number] UMANG MESSER MD at 1517 CC: [id number] DICTATION DATE: 12/31/18 1407 PRISON PSYCHIATRIST: 12/31/18 1434 REG [facility] [address] [place] [address]
--- NOTE | 2018-12-31 15:40 | NUR ---
DRESSING CDI, PEDAL PULSES PALPABLE. HOB IS FLAT, VSS, DAUGHTER AT BEDSIDE, CALL LIGHT IN REACH.
--- NOTE | 2018-12-31 16:18 | NUR ---
PT IS ALERT, DENIES ANY C/O. MAHI PO FLUIS WITH NO NAUSEA. NSR, RATE IS 69, BP IS 129/67. HOB IS FLAT. CALL LIGHT IN REACH. DRESSING CDI LEFT GROIN, PEDAL PULSES PALPABLE.
--- NOTE | 2018-12-31 18:07 | NUR ---
1722 HOB ELEVATED 30 DEGREES AND SANDWICH SERVED. DRESSING IS CDI, PEDAL PULSES PALPABLE. 1745 HOB FULLY ELEVATED, DRESSING IS CDI, PT HAS MAHI 100% OF SANDWICH AND PO FLUIDS. PEDAL PULSES PALPABLE. 1805 DRESSING REMAINS CDI, PEDAL PULSES PALPABLE. PT DENIES ANY NV DEFICIT TO LLE. IV DC'D WITH CATH INTACT AND PT IS DRESSING FOR DC TO HOME.
--- NOTE | 2018-12-31 18:39 | NUR ---
1820 PT HAS AMBULATED TO THE BATHROOM AND HAS VOIDED QS. DC INSTRUCTIONS HAVE BEEN REVIEWED WITH PT AND DAUGHTER WHO VERBALIZE UNDERSTANDING. PT ESCORTED TO PRIVATE AUTO VIA WC BY NURSE WITH DAUGHTER DRIVING HER HOME. PT HAS ALL PERSONAL BELONGINGS AND DC INSTRUCTIONS AT TIME OF DISCHARGE.
== END 2018-12-31 18:20 | disposition home or self-care (01) ==
LOC: D.CATH 11:32
PROVIDERS: ATTEND Internal Medicine Interventional Cardiology
DX: I21.9 Acute myocardial infarction, unspecified (principal); I25.10 Atherosclerotic heart disease of native coronary artery without angina pectoris